=== PATIENT | male | born 2005 | race Caucasian/White ===

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

== ENCOUNTER → 2023-06-24 14:30 | Outpatient (BNVA) | payer BC, SELFPAY | PROVIDERS: PCP Registered Nurse; Visit Provider Registered Nurse | DX: R30.0 Dysuria (principal) | CPT/HCPCS: 81000; 87491; 87591 ==

== ENCOUNTER 2023-10-17 04:15 | Emergency (ER) | payer SELFPAY ==
[2023-10-17 04:20] VITALS: BP 127/82; PULSE 78; RESP 20; TEMP 36.8; O2SAT 96; BMI 20.6
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
[2023-10-17] MEDS: ondansetron 2 mg/ML SDV 2 mL 4 MG IVP (04:58)
[2023-10-17 05:00] VITALS: RESP 18; O2SAT 97
[2023-10-17] MEDS: morphine 4 mg/mL SDV 1 mL IVP (05:00)
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
[2023-10-17 05:07] VITALS: BP 115/71; PULSE 70; RESP 18; O2SAT 99
[2023-10-17 05:13] LABS: Basophils % 0.5 %; Eosinophils # 0.1 10^3/uL (0.0-0.8); Eosinophils % 0.8 %; Lymphocytes # 2.1 10^3/uL (1.5-6.5); Lymphocytes % 24.9 %; Mean Corpuscular HGB Conc 32.7 g/dL (30-55); Mean Corpuscular Hemoglobin 28.2 pg (27-33); Mean Corpuscular Volume 86.1 fl (82-101); Mean Platelet Volume 9.8 fL (7.4-10.4); Monocytes % 11.5 %; Neutrophils # 5.25 10^3/uL (1.8-8.0); Neutrophils % 62.1 %; Nucleated Red Blood Cells % 0 %; Platelet Count 264 10^3/cmm (157-399); Red Blood Count 4.76 10^6/uL (3.85-5.65); Red Cell Distribution Width 13.6 % (12.1-15.1); White Blood Count 8.45 10^3/uL (4.5-13.0)
[2023-10-17] MEDS: iohexol 350 mg/mL 500 mL Btl (per mL) IV (05:23)
[2023-10-17 05:34] LABS: Alanine Aminotransferase 13 U/L (0-41); Albumin Level 4.6 g/dL (3.5-5.2); Alkaline Phosphatase 67 U/L (40-130); Anion Gap 12.1 (5-19); Aspartate Amino Transferase 20 U/L (0-40); Blood Urea Nitrogen 11 mg/dL (6-20); Calcium 9.2 mg/dL (8.5-10.5); Carbon Dioxide 28 mmol/L (22-29); Chloride 105 mmol/L (98-107); Globulin 2.8 g/dL (1.3-4.6); Glomerular Filtration Rate 123.2 mL/min (90-130); Glucose 97 mg/dL (65-115); Osmolality Calculated 291 mOsm/kg (285-295); Potassium 4.1 mmol/L (3.5-5.1); Sodium 141 mmol/L (136-145); Total Bilirubin 0.3 mg/dL (0.15-1.2); Total Protein 7.4 g/dL (6.6-8.7)
== END 2023-10-17 06:13 | disposition home or self-care (01) ==
PROVIDERS: Emergency Provider Emergency Medicine; PCP Registered Nurse
DX: S13.4XXA Sprain of ligaments of cervical spine, initial encounter (principal); S80.12XA Contusion of left lower leg, initial encounter; S80.01XA Contusion of right knee, initial encounter; V29.888A Rider (driver) (passenger) of other motorcycle injured in other specified transport accidents, initial encounter
CPT/HCPCS: 70450; 71260; 72125; 73100; 73562; 73590; 74177; 80053; 85025; 96374; 96375; 99285; J2270; J2405; Q9967

== ENCOUNTER → 2023-11-19 09:24 | Outpatient (BNVA) | payer SELFPAY | PROVIDERS: PCP Registered Nurse; Visit Provider Nurse Practitioner | DX: M25.561 Pain in right knee (principal); M25.562 Pain in left knee; M94.262 Chondromalacia, left knee; S83.207A Unspecified tear of unspecified meniscus, current injury, left knee, initial encounter; S83.206A Unspecified tear of unspecified meniscus, current injury, right knee, initial encounter; V29.99XA Rider (driver) (passenger) of other motorcycle injured in unspecified traffic accident, initial encounter | CPT/HCPCS: 73560; 73565 ==

== ENCOUNTER 2024-05-10 14:54 | Outpatient (CLI) | payer BC, SELFPAY ==
--- NOTE | 2024-05-10 15:15 | MR_ITS ---
WS: [id number] MRI LEFT KNEE HISTORY: LEFT KNEE PAIN COMPARISON: 11/19/2023 radiograph Anterior cruciate ligament: Intact. Posterior cruciate ligament: Intact. Medial collateral ligament: Intact. Posterior lateral corner structures: Intact. Medial menisci: Intact. Normal signal, size and shape. Lateral meniscus: Intact. Normal signal, size and shape. Extensor mechanism: Distal quadriceps tendon and patellar tendons are intact. Fluid and soft tissue: No joint effusion. No Qureshi's cyst. Osseous and articular structures: Patellofemoral compartment: Intermediate marrow signal consistent with edema in the medial patella. P atellar retinaculum is small caliber. There is a small amount of fluid along the medial patella exten ding inferiorly along the femoral condyle. Focal chondromalacia involving the medial patellar facet. Medial compartment: No significant joint space narrowing. There is focal marrow edema in the nonweigh tbearing surface of the anterior medial femoral condyle. There is adjacent to the fluid that tracks f rom the patella. There is additional focal marrow edema in the medial tibial plateau with no definite fracture. Lateral compartment: Very subtle marrow edema nonweightbearing surface of the lateral femoral condyle . There is additional marrow edema along the tibial plateau and metaphysis. No definite fracture. Car tilage is intact. MR/MR knee LT wo con* [id number] IMPRESSION: 1. Multifocal sites of marrow edema indicating a prior injury. No fractures ar e identified. 2. Focal marrow edema in the anterior medial femoral condyle with adjacent flu id. 3. Small amount of marrow edema in the medial patella. 4. Minimal marrow edema in the lateral femoral condyle, nonweightbearing surfa ce. 5. Tibial plateau marrow edema without fracture. 6. No ACL or meniscal tear. 7. Chondromalacia medial patellar facet.
--- NOTE | 2024-05-10 16:00 | MR_ITS ---
WS: [id number] MRI RIGHT KNEE HISTORY: RIGHT KNEE PAIN COMPARISON: Radiographs 11/19/2023, prior MRI right knee 06/08/2018 Anterior cruciate ligament: Intact. Posterior cruciate ligament: Intact. Medial collateral ligament: Intact. Posterior lateral corner structures: Intact. Medial menisci: Intact. Normal signal, size and shape. Lateral meniscus: Intact. Normal signal, size and shape. Extensor mechanism: Distal quadriceps tendon and patellar tendons are intact. Fluid and soft tissue: Small suprapatellar joint effusion. No significant soft tissue edema. No Qureshi 's cyst. Osseous and articular structures: Patellofemoral compartment: Mild narrowing of the patellofemoral compartment. This moderate to severe loss of cartilage along the medial patellar facet with full-thickness defect. Loss of cartilage exte nds nearly to the patellar eminence. Similar findings noted on the prior exam. Lateral cartilage is w ell-preserved. Normal patellar retinaculum. Medial compartment: No significant joint space narrowing. There is marrow edema in the medial femoral condyle and medial tibial plateau. No fracture. Lateral compartment: Minimal narrowing. Cartilage is preserved. No marrow edema. MR/MR knee RT wo con* [id number] IMPRESSION: 1. Focal marrow edema in the medial tibial plateau and medial femoral condyle without fracture. 2. 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 Similar findings noted on the prior MRI. No m arrow edema. 3. No ACL or meniscal tear.
== END 2024-05-10 14:55 | disposition home or self-care (01) ==
LOC: RAD 15:03
PROVIDERS: PCP Registered Nurse; Visit Provider Nurse Practitioner
DX: M94.262 Chondromalacia, left knee (principal); M94.261 Chondromalacia, right knee; V29.99XA Rider (driver) (passenger) of other motorcycle injured in unspecified traffic accident, initial encounter; R93.6 Abnormal findings on diagnostic imaging of limbs
CPT/HCPCS: 73721

== ENCOUNTER → 2024-09-11 16:03 | Outpatient (BNVA) | payer OTHER, SELFPAY | PROVIDERS: PCP Registered Nurse; Visit Provider Nurse Practitioner | DX: Z01.818 Encounter for other preprocedural examination (principal) | CPT/HCPCS: 36415; 80053; 81001; 85025 ==

== ENCOUNTER 2024-10-17 10:00 | Outpatient (CLI) | payer OTHER, SELFPAY ==
--- NOTE | 2024-10-17 10:15 | MR_ITS ---
WS: [id number] MRI HEAD WITHOUT CONTRAST TECHNIQUE: Sagittal T1, T2 axial, T2 axial FLAIR, axial and coronal T1 images, axial susceptibility weighted imaging, axial diffusion weighted images, and coronal T2 images were obtained. CLINICAL INFORMATION: R51.9 - Headache, unspecified COMPARISON: None. FINDINGS: No evidence of restricted diffusion to suggest acute ischemia. Ventricular system and basal cisterns are patent. No suspicious intracranial signal abnormalities. Normal houston-white differentiation. Normal posterior fossa. Normal vascular flow voids at the skull base. No extra-axial fluid collections. Pa ranasal sinuses and mastoid air cells are well aerated. Normal posterior nasopharynx. No hemosiderin on the susceptibility weighted images. Normal optic chiasm and pituitary infundibulum. Temporal lobes and hippocampal formations are normal in appearance. No evidence of mesial temporal sclerosis. Normal cavernous sinuses. Incidental minimal low-lying cerebellar tonsils. No other suspicious findings. MR/MR head wo con* [id number] IMPRESSION: 1. No evidence of restricted diffusion to suggest acute ischemia. 2. No suspicious intracranial signal abnormalities. 3. No hemosiderin on the susceptibility weighted images. 4. Temporal lobes and hippocampal formations are normal in appearance.
== END 2024-10-17 10:01 | disposition home or self-care (01) ==
LOC: RAD 10:02
PROVIDERS: PCP Registered Nurse; Visit Provider Specialist
DX: R51.9 Headache, unspecified (principal); M54.2 Cervicalgia; V29.99XA Rider (driver) (passenger) of other motorcycle injured in unspecified traffic accident, initial encounter
CPT/HCPCS: 70551

== ENCOUNTER 2024-10-24 06:21 | Day surgery (SDC) | payer OTHER, SELFPAY ==
[2024-10-24] VITALS (10 sets, daily range): BP systolic 88–122; BP diastolic 31–73; PULSE 66–74; RESP 16–17; TEMP 36.2–36.3; O2SAT 94–100; BMI 20.4
[2024-10-24] MEDS: acetaminophen 1,000 MG/100 ML PIGGYBACK 400 MG IV (06:52)
--- NOTE | 2024-10-24 07:01 | W.PM.OPSUD ---
Surgery/Procedure H&P Update DATE OF PROCEDURE: October 24, 2024 DATE H&P PERFORMED: 10/20/24 H&P UPDATE INFORMATION: I have reviewed H&P completed within last 30 days, I have examined patient prior to procedure, No changes to prior documentation, H&P is in [facility] EMR on date indicated and Risks and benefits of the procedure reviewed CHANGES TO PREVIOUS DOCUMENTATION: Left knee MRI Impression: 1. Multifocal sites of marrow edema indicating a prior injury. No fractures are identified. 2. Focal marrow edema in the anterior medial femoral condyle with adjacent fluid. 3. Small amount of marrow edema in the medial patella. 4. Minimal marrow edema in the lateral femoral condyle, nonweightbearing surface. 5. Tibial plateau marrow edema without fracture. 6. No ACL or meniscal tear. 7. Chondromalacia medial patellar facet. PLANNED PROCEDURE: Operation Date: 10/24/24 08:00 Proposed Procedures p Knee Diagnostic and Arthroscopy w/ Debridement(Left) - Bee Maza MD Related Problem List Diagnoses 1. Chondromalacia of left knee:
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
--- NOTE | 2024-10-24 08:31 | PC.NURSE ---
2nd bag of fluids started due to 1st bag left unclamped post acetaminophen infusion.
[2024-10-24] MEDS: ceFAZolin 2,000 mg SDV 2000 MG IVP (09:03)
[2024-10-24] MEDS: ROPivacaine 0.5% SDV 30 mL 150 MG INJECTION (09:50)
[2024-10-24] MEDS: morphine 4 mg/mL SDV 1 mL 8 MG XX (09:50)
--- NOTE | 2024-10-24 09:58 | PC.NURSE ---
first four pictures of procedure taken unrelated to procedure and prior to incision and surgery start.
--- NOTE | 2024-10-24 10:34 | P.OP_ITS ---
Operative Report Date of procedure: October 24, 2024 Pre-op diagnosis: Left knee chondromalacia patella with positive Dariel's Post-op diagnosis: Left knee chondromalacia patella with medial and lateral meniscal tears Post-op findings: Inner rim tearing of the lateral meniscus and anterior horn tearing of the medial meniscus in addition to severe chondromalacia medial patella Procedure done: Left arthroscopic knee surgery with partial medial and lateral meniscectomies, chondroplasty patella, and synovectomy, partial Implants: None Specimens removed/disposition: Fragments, arthroscopic, disposed of Pathology: None Surgeon: Bee Maza MD Melter Loader: None Anesthesia: General (Per LMA, ASA 2) Estimated blood loss (mL): 1 Tourniquet time (min): 37 (At 250 mmHg) IV fluids (mL): 800 Urine output (mL): 0 (No Cameron) Complications: None Findings: As noted above Condition: stable Disposition: PACU (Then return to same-day surgery for discharge to home) Brief History: This 19-year-old gentleman presents for left knee arthroscopy. Preoperatively, he has had MRI which demonstrated marrow edema, but also, chondromalacia of the medial patellar facet. The patient had failed conservative measures and had symptoms consistent with meniscal tear including positive Dariel's testing. Because of his ongoing symptoms and failure to respond to nonoperative interventions, the patient wished to proceed with left arthroscopic knee surgery. Risks and complications were discussed with him. Consents were signed preoperatively in the office. He was seen the morning of surgery and had further opportunity for question and answer. Procedure: Patient was brought to the operating theater and after undergoing adequate g eneral anesthesia per LMA, ASA 2, the patient's left lower extremity was prepped and draped in usual fashion utilizing DuraPrep. A tourniquet was placed high on the leg prior to prepping and draping. The tourniquet was elevated prior to commencement of the surgical procedure to 250 mmHg. Total tourniquet time was 37 minutes. Elevation followed prepping and exsanguination. Prior to commencement of the surgical procedure, a surgical pause was performed. At the time of the surgical pause, we identified the site and side of surgery. We also confirmed the patient's identity and appropriate and timely administration of preoperative antibiotics. Preoperative surgical markings were also visualized at this time. Standard arthroscopic portals were utilized including superolateral, inferome dial, and inferolateral portals. The examination commenced in the suprapatellar pouch area where the patient was noted to have chondromalacia of the significant degree on the undersurface of the patella primarily involving the medial facet. The arthroscope was then passed in the medial compartment where there was noted to be irregularity and tearing of the anterior horn of the medial meniscus. The arthroscope was then passed across the notch area where anterior cruciate ligament was visualized and found to be intact. There was inflammation and synovitis in this area which was debrided. The scope was passed into the lateral compartment with the knee in a [id number] position. Lateral meniscus was noted to have inner rim tearing. This was addressed with a combination of the intra-articular shaver and intra-articular heat wand. Once the lateral meniscus had been thus prepared, it was palpated and found to be intact and not displaceable into the knee joint. Scope was then returned to the medial compartment where a partial medial meniscectomy was accomplished on the anterior horn of the medial meniscus. The remainder of the meniscus appeared intact. The meniscus was palpated and found to be not displaceable into the knee joint. The arthroscope was then returned to the patellofemoral joint where a chondroplasty was performed of the undersurface of the patella. This c hondroplasty involved use of the intra-articular shaver as well as the heat wand. Once the patella had been addressed, the scope was passed back through the knee compartments to evaluate for other abnormalities. Finding none, attention was directed to closure. The knee was copiously irrigated and suctioned dry. Following this, each portal was closed with a simple suture followed by Dermabond and OpSite. Additionally, the knee was injected with 20 mL of half percent ropivacaine and 8 mg of morphine. Additional 10 mL of ropivacaine was placed about the portals. Sterile dressing was placed consisting of the Dermabond, OpSite, sterile soft roll followed by the Artie wrap. Patient was returned to Recovery Room in satisfactory condition where he will be discharged home to follow-up in the office as scheduled. There were no complications and no specimens. Related Problem List Diagnoses 1. Chondromalacia of left knee: 2. Other tear of medial meniscus of left knee as current injury, initial encounter: 3. Other tear of medial meniscus of right knee as current injury, initial encounter:
[2024-10-24] MEDS: HYDROcodone-acetaminophen 5-325 mg Tablet 1 TAB PO (11:17)
--- NOTE | 2024-10-24 11:45 | ANE.PACU2 ---
Inpatient post-anesthesia follow up: Airway intact: Yes Vital signs: Temperature 97.1 F Pulse Rate 66 Respiratory Rate 16 Blood Pressure 113/62 Pulse Oximetry 97 Oxygen Delivery Me thod Room Air Oxygen Flow Rate Fraction of Inspir ed Oxygen Hydration adequate: Yes Nausea and vomiting: No Pain level: 1 Mental status: Baseline
== END 2024-10-24 11:45 | disposition home or self-care (01) ==
PROVIDERS: Visit Provider Specialist
PROC: (CPT 29870; principal; 2024-10-24 08:00)
DX: M22.42 Chondromalacia patellae, left knee (principal); M23.349 Other meniscus derangements, anterior horn of lateral meniscus, unspecified knee; F17.200 Nicotine dependence, unspecified, uncomplicated; F12.90 Cannabis use, unspecified, uncomplicated
CPT/HCPCS: 29880; J0131; J0690; J1100; J2250; J2270; J2405; J2704; J2795; J3010; J7030; J9999

== ENCOUNTER 2024-12-21 08:39 | Outpatient (CLI) | payer OTHER, SELFPAY ==
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
== END 2024-12-21 08:40 | disposition home or self-care (01) ==
LOC: RAD 08:40
PROVIDERS: Visit Provider Specialist
DX: R29.898 Other symptoms and signs involving the musculoskeletal system (principal); M54.2 Cervicalgia
CPT/HCPCS: 72141